=== PATIENT | male | born 1965 | race Caucasian/White ===

== ENCOUNTER 2019-05-18 11:29 | Emergency (ER) | payer SELFPAY ==
--- NOTE | 2019-05-18 12:08 | RAD ---
Right middle finger 2 views HISTORY: Pain. Foreign body. FINDINGS: Diffuse soft tissue swelling about the middle finger. Projecting immediately volar to the d istal interphalangeal joint on the lateral view is a linear 0.2 cm subtle hyperdensity, significantly less dense than the bone. Immediately posterior to the distal shaft of the proximal phalanx on the lateral view is a 0.1 cm sim ilar density, less than bone. These areas likely represent artifact. Correlation with localized clinical abnormality and history is required. No acute osseous abnormalities are demonstrated. There is mild osteoarthritic change.
[2019-05-18] MEDS ORDERED: HYDROcodone/Acetaminophen 5/325 mg Tablet ONE (12:31)
[2019-05-18] MEDS ORDERED: Adacel (T-DAP) 0.5 ML SYRINGE ONE (12:31)
== END 2019-05-18 12:43 | disposition home or self-care (01) ==
LOC: MADERS 11:29
DX: L03.011 Cellulitis of right finger (principal); F17.210 Nicotine dependence, cigarettes, uncomplicated
CPT/HCPCS: 10060; 90471; 90715